=== PATIENT | male | born 1965 | race Caucasian/White ===

== ENCOUNTER 2022-02-28 10:43 | Outpatient (REF) | payer MEDICAID, SELFPAY ==
[2022-02-28 13:40] LABS: MANUAL DIFF FLAG NO
[2022-02-28 13:50] LABS: Basophils Percent Auto 0.5 % (0-2); Eosinophils Absolute Auto 0.1 X10*3/uL (0.0-0.4); Eosinophils Percent Auto 1.4 % (0-4); Hematocrit 45.3 % (42.0-52.0); Hemoglobin 15.3 g/dl (14.0-18.0); Imm Gran Abs Auto 0.03 X10*3/uL (0.00-0.03); Imm Gran Pct Auto 0.3 % (0.0-0.4); Lymphocytes Absolute Auto 1.5 X10*3/uL (1.2-4.9); Lymphocytes Percent Auto 16.6 % (20-40); Mean Corpuscular HGB Conc 33.8 g/dl (31.0-36.0); Mean Corpuscular Hemoglobin 30.2 pg (27.0-33.0); Mean Corpuscular Volume 89.5 fL (80.0-98.0); Mean Platelet Volume 10.6 fL (9.4-12.4); Monocytes Absolute Auto 0.5 X10*3/uL (0.1-1.2); Monocytes Percent Auto 5.9 % (2-11); Neutrophils Absolute Auto 6.6 x10*3/uL (2.0-8.3); Neutrophils Percent Auto 75.3 % (45-73); Platelet Count 235 X10*3/uL (160-400); Red Blood Count 5.06 X10*6/uL (4.60-5.80); Red Cell Distribution Width 12.5 % (11.0-16.0); White Blood Count 8.8 X10*3/uL (4.8-10.8)
[2022-02-28 14:01] LABS: Alanine Aminotransferase 33 U/L (0-40); Albumin Level 4.3 g/dL (3.5-5.0); Alkaline Phosphatase 98 U/L (39-117); Anion Gap 16 (12-20); Aspartate Amino Transferase 18 U/L (5-37); Bilirubin Total 1.4 mg/dL (0.0-1.0); Blood Urea Nitrogen 15 mg/dL (9-16); Calcium 9.3 mg/dL (8.4-10.2); Carbon Dioxide 27 mmol/L (22-29); Chloride 107 mmol/L (96-108); Cholesterol 137 mg/dL; Estimated Glomerular Filt Rate 58; Glucose Fasting 91 mg/dL (60-99); HDL Cholesterol 37 mg/dL; LDL Cholesterol Calculated 83 mg/dl; Potassium 4.9 mmol/L (3.3-5.1); Sodium 145 mmol/L (135-145); Triglycerides 86 mg/dL
[2022-02-28 14:22] LABS: Prostate Specific Antigen Scr 3.25 ng/mL (<0.05-4.0)
== END 2022-02-28 10:44 | disposition home or self-care (01) ==
LOC: HO.10HDL 10:43
PROVIDERS: Visit Provider Internal Medicine
DX: Z00.00 Encounter for general adult medical examination without abnormal findings (principal); Z12.5 Encounter for screening for malignant neoplasm of prostate; E78.00 Pure hypercholesterolemia, unspecified; I10 Essential (primary) hypertension; F17.201 Nicotine dependence, unspecified, in remission
CPT/HCPCS: 36415; 80053; 80061; 84153; 85025

== ENCOUNTER → 2022-08-08 14:02 | Outpatient (BNVA) | payer MEDICAID, SELFPAY | PROVIDERS: PCP Internal Medicine; Visit Provider Urology | DX: N48.6 Induration penis plastica (principal) | CPT/HCPCS: 99202 ==

== ENCOUNTER 2022-08-15 10:04 | Outpatient (REF) | payer MEDICAID, SELFPAY ==
[2022-08-15 11:09] LABS: Alanine Aminotransferase 24 U/L (0-40); Albumin Level 4.1 g/dL (3.5-5.0); Alkaline Phosphatase 92 U/L (39-117); Anion Gap 11 (12-20); Aspartate Amino Transferase 16 U/L (5-37); Blood Urea Nitrogen 14 mg/dL (9-16); Calcium 9.2 mg/dL (8.4-10.2); Carbon Dioxide 28 mmol/L (22-29); Chloride 108 mmol/L (96-108); Estimated Glomerular Filt Rate 54; Glucose Random 104 mg/dL (60-115); Potassium 4.7 mmol/L (3.3-5.1); Sodium 142 mmol/L (135-145); Total Protein 6.4 g/dL (6.5-8.0)
== END 2022-08-15 10:05 | disposition home or self-care (01) ==
LOC: HO.10HDL 10:04
PROVIDERS: Visit Provider Internal Medicine
DX: E78.00 Pure hypercholesterolemia, unspecified (principal); F17.201 Nicotine dependence, unspecified, in remission; N48.6 Induration penis plastica
CPT/HCPCS: 36415; 80053

== ENCOUNTER 2023-03-13 12:33 | Outpatient (REF) | payer MEDICAID, SELFPAY ==
--- NOTE | ~2023-03-13 | US_ITS ---
EXAM: US penile COMPARISON: None CLINICAL HISTORY: Induration penis plastica TECHNIQUE: Sonographic evaluation of the penis was performed. FINDINGS: Single punctate calcification is noted between the corpora cavernosa measuring 2 mm at the level of the mid phallus. US/US penile IMPRESSION: Single punctate calcification is noted between the corpora cavernosa measuring 2 mm at the level of the mid phallus, which could be seen in the setting of Peyronie's disease.
== END 2023-03-13 12:34 | disposition home or self-care (01) ==
LOC: HO.US 12:33
PROVIDERS: PCP Internal Medicine; Visit Provider Urology
DX: N48.6 Induration penis plastica (principal)
CPT/HCPCS: 76857

== ENCOUNTER 2023-03-21 08:33 | Outpatient (AMB) | payer MEDICAID, SELFPAY ==
--- NOTE | 2023-03-21 08:35 | A.OFFVIS_ITS ---
Intake Intake Visit Reasons: 4M/US(us?) Intake Note: Patient is Present for Follow Up Urology Medication: Tadalafil Antibiotic Allergies: None Blood Thinners: None Allergies No Known Allergies Allergy (Verified 03/21/23 09:09) Medication List - Last Reconciled 03/21/23 by Ely Briones MD pentoxifylline ER 400 mg PO BID 90 days HPI HPI Comments History of Present Illness Details Rufus is a 57-year-old male who presents today to the office for a follow-up. 03/21/2023? He is followed today for US results. Rufus was evaluated by Sathish Zaragoza on 08/08/2022 for penile curvature complaints. He was prescribed pentoxivylline and cialis 5 mg daily. He states that he is only taking pentoxifylline and he did not realize that there was another medication prescribed. He states that is doing well with having erections that are straighter and able to have sexual activities without any complaints. He has also been using vacuum pump to help in re moduling. He has a family history of prostate cancer in his maternal uncle. He had a penile vascular US which was discussed with the patient. Single punctate calcification is noted which is not clinically significant. PSA results reviewed -- 02/2022 was 3.25 ng/mL. Review of chart: Last visit: 08/08/2022-- - Peyronie's disease, Initial evaluation for complaint of Peyronie's disease Primary complaint is penile curvature base of penis - complaining of loss of penile length The problem has been progressive since procedure on prostate for BPH At this time his erections - fully rigid sufficient penetrative for intercourse Associated symptoms include -----penile pain ---No penile discharge-- No Associated conditions - prior prostate procedure Evaluations - thickening on ventral aspect at base of penis Therapeutic plan - combination therapy tadalafil and pent oxifylline with vacuum pump 03/21/2023: Plan:Follow-up with Dr. Yodit garcia in one year. Continue pentoxifylline 400 mg and PSA screening. Review of Systems Const All systems reviewed & are unremarkable except as noted in HPI and below Reports no additional complaints Eyes Reports no additional complaints ENT Reports no additional complaints Card Denies dyspnea Resp Denies cough and Denies dyspnea GI Reports no additional complaints Musc Reports no additional complaints Skin/Breast Denies rash and Denies unusual bruising Neuro Reports no additional complaints Psych Reports no additional complaints Endo Reports no additional complaints Rupert/Lymph Reports no additional complaints Aller/Immun Reports no additional complaints Results AMB Urinalysis, Automated UA Leukoctes 0 Deborah/uL Last Edit by Mayda Rodriguez, [facility] on 03/21/23 09:16 UA Nitrite Negative Last Edit by Mayda Rodriguez, [facility] on 03/21/23 09:16 UA Urobilinogen 0.2 mg/dL Last Edit by Mayda Rodriguez, A on 03/21/23 09:1 6 UA Protein 0 mg/dL Last Edit by Mayda Rodriguez, A on 03/21/23 09:16 UA pH 5.0 Last Edit by Mayda Rodriguez, [facility] on 03/21/23 09:16 UA Blood 10 Kojo/uL Last Edit by Mayda Rodriguez, A on 03/21/23 09:16 UA Specific [place] 1.020 Last Edit by Mayda Rodriguez, [facility] on 03/21/23 09: 16 UA Ketone Negative Last Edit by Mayda Rodriguez, A on 03/21/23 09:16 UA Bilirubin 0 mg/dL Last Edit by Mayda Rodriguez, [facility] on 03/21/23 09:16 UA Glucose 0 mg/dL Last Edit by Mayda Rodriguez, [facility] on 03/21/23 09:16 Results Reviewed Results Reviewed: Laboratory Last Values Urine pH (Auto) 5.0 03/21/23 09:09 Specific [place] (Auto) 1.020 03/21/23 09:09 Urine Protein (Auto) 0 mg/dL 03/21/23 09:09 Glucose (UA)(Auto) 0 mg/dL 03/21/23 09:09 Urine Ketones (Auto) Negative 03/21/23 09:09 Urine Blood (Auto) 10 Kojo/uL 03/21/23 09:09 Urine Nitrite (Auto) Negative 03/21/23 09:09 Urine Bilirubin (Auto) 0 mg/dL 03/21/23 09:09 Urine Urobilinogen (Auto) 0.2 mg/dL 03/21/23 09:09 Leukocyte Esterase (Auto) 0 Deborah/uL 03/21/23 09:09 Date of Service: 03/13/23 EXAM: US penile COMPARISON: None CLINICAL HISTORY: Induration penis plastica FINDINGS: Single punctate calcification is noted between the corpora cavernosa measuring 2 mm at the level of the mid phallus. IMPRESSION: Single punctate calcification is noted between the corpora cavernosa measuring 2 mm at the level of the mid phallus, which could be seen in the setting of Peyronie's disease. Assessment & Plan Assessment & Plan (1) Peyronie's disease: Code(s): N48.6 - Induration penis plastica (2) Screening PSA (prostate specific antigen): Code(s): Z12.5 - Encounter for screening for malignant neoplasm of prostate Plan Follow-up with Dr. Guzman in one year. Continue pentoxifylline 400 mg and PSA screening. Orders: Orders AMB Urinalysis Automated Today Z13.9 - Encounter for screening, unspecified PSA,Total (Free>4and<10) 10 Months Z12.5 - Encounter for screening for malignant neoplasm of prostate Medications: Refilled pentoxifylline ER 400 mg PO BID 90 days 180 tabs 3RF N48.6 - Induration penis plastica Patient Instructions: The patient had an opportunity to ask questions regarding treatment plan. All questions were answered. Imaging, Laboratory studies and physical exam results were discussed and reviewed in detail. No major barriers to understanding were identified. The patient expressed understanding and agreement with the above treatment plan. The patient is aware they should contact our office by phone for worsening of their current condition or the appearance of new symptoms. Compliance is encouraged with any medications and followup testing that is ordered. It is a privilege to be allowed the opportunity to participate in the urologic care of your patient. If you have any questions or concerns regarding treatment for the above conditions please do not hesitate to contact me. The office telephone contact is [phone]. This note is constructed in part using voice recognition software. While every effort has been made to ensure accuracy feller hand errors may have been included. Yours sincerely, Ely Briones MD Coding Level of Care Code Est Pt Level 3 (17379) Diagnoses Peyronie's disease N48.6 Screening PSA (prostate specific antigen) Z12.5
== END 2023-03-21 09:41 | disposition home or self-care (01) ==
PROVIDERS: PCP Internal Medicine; Visit Provider Urology
DX: N48.6 Induration penis plastica (principal); Z12.5 Encounter for screening for malignant neoplasm of prostate; Z13.9 Encounter for screening, unspecified
CPT/HCPCS: 99213

== ENCOUNTER → 2023-03-21 08:33 | Outpatient (BNVA) | payer MEDICAID, SELFPAY | PROVIDERS: PCP Internal Medicine; Visit Provider Urology | DX: Z12.5 Encounter for screening for malignant neoplasm of prostate (principal); N48.6 Induration penis plastica | CPT/HCPCS: 81003; 99212 ==

== ENCOUNTER 2023-09-20 09:28 | Outpatient (REF) | payer MEDICAID, SELFPAY ==
[2023-09-20 10:52] LABS: MANUAL DIFF FLAG NO
[2023-09-20 11:11] LABS: Basophils Percent Auto 0.3 % (0-2); Eosinophils Absolute Auto 0.1 X10*3/uL (0.0-0.4); Eosinophils Percent Auto 1.2 % (0-4); Hematocrit 44.6 % (42.0-52.0); Hemoglobin 15.2 g/dl (14.0-18.0); Imm Gran Abs Auto 0.02 X10*3/uL (0.00-0.03); Imm Gran Pct Auto 0.2 % (0.0-0.4); Lymphocytes Absolute Auto 1.7 X10*3/uL (1.2-4.9); Lymphocytes Percent Auto 18.4 % (20-40); Mean Corpuscular HGB Conc 34.1 g/dl (31.0-36.0); Mean Corpuscular Hemoglobin 30.1 pg (27.0-33.0); Mean Corpuscular Volume 88.3 fL (80.0-98.0); Mean Platelet Volume 10.1 fL (9.4-12.4); Monocytes Absolute Auto 0.5 X10*3/uL (0.1-1.2); Monocytes Percent Auto 4.8 % (2-11); Neutrophils Percent Auto 75.1 % (45-73); Platelet Count 219 X10*3/uL (160-400); Red Blood Count 5.05 X10*6/uL (4.60-5.80); Red Cell Distribution Width 13.2 % (11.0-16.0); White Blood Count 9.3 X10*3/uL (4.8-10.8)
[2023-09-20 11:23] LABS: Prostate Specific Antigen Scr 2.57 ng/mL (<0.05-4.0)
[2023-09-20 11:25] LABS: Alanine Aminotransferase 18 U/L (0-40); Albumin Level 4.2 g/dL (3.5-5.0); Alkaline Phosphatase 84 U/L (39-117); Anion Gap 11 (12-20); Aspartate Amino Transferase 14 U/L (5-37); Bilirubin Total 1.6 mg/dL (0.0-1.0); Blood Urea Nitrogen 15 mg/dL (9-16); Calcium 9.3 mg/dL (8.4-10.2); Carbon Dioxide 27 mmol/L (22-29); Chloride 110 mmol/L (96-108); Cholesterol 135 mg/dL (<200); Estimated Glomerular Filt Rate 56; Glucose Random 101 mg/dL (60-115); HDL Cholesterol 38 mg/dL (>40); LDL Cholesterol Calculated 82 mg/dL (<100); Potassium 4.6 mmol/L (3.3-5.1); Sodium 143 mmol/L (135-145); Total Protein 6.8 g/dL (6.5-8.0); Triglycerides 76 mg/dL (<150)
== END 2023-09-20 09:29 | disposition home or self-care (01) ==
LOC: HO.10HDL 09:28
PROVIDERS: Visit Provider Internal Medicine
DX: Z00.00 Encounter for general adult medical examination without abnormal findings (principal); F17.201 Nicotine dependence, unspecified, in remission; M77.11 Lateral epicondylitis, right elbow; E78.00 Pure hypercholesterolemia, unspecified
CPT/HCPCS: 36415; 80053; 80061; 84153; 85025

== ENCOUNTER 2024-10-28 10:05 | Outpatient (REF) | payer MEDICAID, SELFPAY ==
--- OUTSIDE RECORDS SUMMARY | 2024-10-28 11:07 | XMS_ITS | Patient Health Record ---
Author Organization [facility] Address [address] [place] [address] Care Team Providers Care Car Conditioner Name Role Phone Hoa Jeffries Primary Care Provider Unavailab Howard Avelar Unavailable [phone] Reason For Referral No Information Problems Problem Type SNOMED Code ICD Code Onset Dates Problem Status W/U Status Risk Notes Problem [id number] Gastro-esophagea l reflux disease without esophagitis (K21.9) Active confirmed Problem 522277203 Encounter for screening for malignant neoplasm of colon (Z12.11) Active confirmed Problem Screening for malignant neoplasm of rectum (139572305) Encounter for screening for malignant neoplasm of rectum (Z12.12) Active confirmed Problem [id number] Preprocedural examination (Z01.818) Active confirmed Plan Of Treatment Future Test Test Name Order Date COLONOSCOPY 06/10/2015 Insurance Providers Payer Name Payer Address Payer Phone Subscriber Number Group Number Insured Name Patient Relationship to Insured Coverage Start Date Coverage End Date [facility] [address] [place] [address] [id number] CELESTE PINTO Self - patient is the insured Medical (General) History Medical History History ICD Code upper endoscopy 04-13-2009--s mall hiatal hernia, no significant esophagitis nor Oglesby's esophagus Denies NC,DM,CVA,Lung disease,renal dise ase Surgical History Surgery Date(Month/Year) appendectomy the patient describes a sherman surethral procedure for an enlarged prostate
[2024-10-28 13:42] LABS: Alanine Aminotransferase 37 U/L (0-40); Albumin Level 4.3 g/dL (3.5-5.0); Alkaline Phosphatase 87 U/L (39-117); Anion Gap 14 (12-20); Aspartate Amino Transferase 28 U/L (5-37); Bilirubin Total 0.8 mg/dL (0.0-1.0); Blood Urea Nitrogen 17 mg/dL (9-16); Calcium 9.4 mg/dL (8.4-10.2); Carbon Dioxide 24 mmol/L (22-29); Chloride 112 mmol/L (96-108); Cholesterol 175 mg/dL (<200); Estimated Glomerular Filt Rate 59; Glucose Random 111 mg/dL (60-115); HDL Cholesterol 38 mg/dL (>40); LDL Cholesterol Calculated 119 mg/dL (<100); Potassium 4.7 mmol/L (3.3-5.1); Sodium 145 mmol/L (135-145); Total Protein 6.9 g/dL (6.5-8.0); Triglycerides 91 mg/dL (<150)
== END 2024-10-28 10:06 | disposition home or self-care (01) ==
LOC: HO.10HDL 10:05
PROVIDERS: Visit Provider Internal Medicine
DX: E78.00 Pure hypercholesterolemia, unspecified (principal); F17.201 Nicotine dependence, unspecified, in remission; N18.9 Chronic kidney disease, unspecified
CPT/HCPCS: 36415; 80053; 80061